=== PATIENT | female | born 1975 | race Caucasian/White ===

== ENCOUNTER 2017-05-10 09:10 | Emergency (ER) | payer BC, OTHER ==
[~2017-05-10] VITALS: Ht 185.4 cm; Wt 153.6 kg
[~2017-05-10 09:10] MED LIST: ONDA4TAB6 PO
[2017-05-10] MEDS ORDERED: ipratropium/albuterol 3ml nebule NEB ONE (09:20)
[2017-05-10] MEDS ORDERED: methylPREDNISolone sod succ 125mg/2ml vial IV ONE (09:20)
[2017-05-10] MEDS ORDERED: HYDR-569 PO (10:15)
[2017-05-10 10:55] VITALS: BP 120/75
== END 2017-05-10 10:56 | disposition home or self-care (01) ==
LOC: ER 09:10
DX: M25.562 Pain in left knee (principal); E78.00 Pure hypercholesterolemia, unspecified; E11.9 Type 2 diabetes mellitus without complications; F17.200 Nicotine dependence, unspecified, uncomplicated; Z86.718 Personal history of other venous thrombosis and embolism
CPT/HCPCS: 29505; 73564; 99284

== ENCOUNTER 2017-07-12 16:21 | Emergency (ER) | payer BC, OTHER ==
[~2017-07-12] VITALS: Ht 182.9 cm; Wt 151.0 kg
[~2017-07-12 16:21] MED LIST changes: +HYDR-569 PO
[2017-07-12] MEDS ORDERED: ondansetron/PF 4mg/2ml inj IV ONE (16:40)
[2017-07-12] MEDS ORDERED: morphine 4 MG/ML inj SYRINge IM ONE (16:45)
[2017-07-12 17:00] LABS: BASOPHILS % (AUTO) 0.3 % (0-1); EOSINOPHILS # (AUTO) 0.2 X10'3 (0-0.9); EOSINOPHILS % (AUTO) 1.2 % (0-6); HEMATOCRIT 40.8 % (35.0-45.0); HEMOGLOBIN 13.9 g/dl (12.0-16.0); LYMPHOCYTES # (AUTO) 2.1 X10'3 (1.1-4.8); LYMPHOCYTES % (AUTO) 16.7 % (21-51); MEAN CORPUSCULAR HEMOGLOBIN 28.4 PG (27.0-31.0); MEAN CORPUSCULAR HGB CONC 34.1 % (33.0-36.5); MEAN CORPUSCULAR VOLUME 83.3 FL (78-98); MONOCYTES # (AUTO) 0.7 X10'3 (0-0.9); MONOCYTES % (AUTO) 5.4 % (2-12); NEUTROPHILS # (AUTO) 9.7 X10'3 (1.8-7.7); NEUTROPHILS % (AUTO) 76.4 % (42-75); PLATELET COUNT 318 X10'3 (140-440); RED CELL DISTRIBUTION WIDTH 14.2 % (11.5-14.5); WHITE BLOOD COUNT 12.7 X10'3 (4.5-11.0)
[2017-07-12] MEDS ORDERED: morphine 4 MG/ML inj SYRINge IV ONE ×2 (17:00→17:25)
[2017-07-12 17:19] LABS: ALANINE AMINOTRANSFERASE 33 U/L (12-78); ALBUMIN 3.8 G/DL (3.4-5.0); ALKALINE PHOSPHATASE 66 IU/L (46-116); ANION GAP 11 (8-16); ASPARTATE AMINO TRANSFERASE 17 U/L (10-37); BILIRUBIN,TOTAL 0.3 MG/DL (0.1-1.0); BLOOD UREA NITROGEN 15 MG/DL (7-18); BUN/CREATININE RATIO 17.2 (6.6-38.0); CHLORIDE 106 MMOL/L (99-107); CREATININE 0.87 MG/DL (0.40-0.90); GLUCOSE 138 MG/DL (70-104); LIPASE 139 U/L (73-393); POTASSIUM 3.5 MMOL/L (3.5-5.1); SODIUM 142 MMOL/L (135-145); TOTAL CARBON DIOXIDE 24.6 MMOL/L (24-32); TOTAL PROTEIN 7.6 G/DL (6.4-8.2); TROPONIN I < 0.04 NG/ML (0.0-0.05); eGFR 71 ML/MIN
[2017-07-12 17:34] LABS: URINE HCG NEGATIVE (NEG)
[2017-07-12 17:38] LABS: CLARITY,URINE CLEAR (Clear); COLOR,URINE YELLOW (Yellow); GLUCOSE, URINE NEGATIVE (Neg); KETONES,URINE NEGATIVE (Neg); LEUKOCYTE ESTERASE ,URINE NEGATIVE (Neg); NITRITES, URINE NEGATIVE (Neg); OCCULT BLOOD,URINE NEGATIVE (Neg); PH,URINE 6.5 (4.8-8.0); PROTEIN,URINE NEGATIVE (Neg); UROBILINOGEN,URINE 0.2 E.U/dL (0.2-1.0)
[2017-07-12 17:40] LABS: UA COLLECTION TYPE STRAIGHT CATH
[2017-07-12] MEDS ORDERED: HYDROmorphone inj. 0.5 MG/0.5 ML DISP.SYRIN IV STA (18:13)
[2017-07-12 19:34] LABS: URINE AMPHETAMINE SCREEN NEGATIVE (Neg); URINE BARBITUATE SCREEN NEGATIVE (Neg); URINE BENZODIAZEPINES SCREEN NEGATIVE (Neg); URINE CANNABINOID SCREEN POSITIVE (Neg); URINE COCAINE SCREEN NEGATIVE (Neg); URINE METHADONE SCREEN NEGATIVE (Neg); URINE OPIATE SCREEN POSITIVE (Neg); URINE PHENCYCLIDINE SCREEN NEGATIVE (Neg)
[2017-07-12] MEDS ORDERED: HYDR-569 PO (19:55)
[2017-07-12 20:04] VITALS: BP 147/82
== END 2017-07-12 20:06 | disposition home or self-care (01) ==
LOC: ER 16:22
DX: E28.2 Polycystic ovarian syndrome (principal); R10.84 Generalized abdominal pain; E78.00 Pure hypercholesterolemia, unspecified; E11.9 Type 2 diabetes mellitus without complications; Z86.718 Personal history of other venous thrombosis and embolism
CPT/HCPCS: 36415; 71045; 74176; 76856; 80053; 80305; 81003; 81025; 83605; 83690; 84484; 85025; 93005; 96372; 96374; 96375; 99285; J1170; J2270; J2405

== ENCOUNTER 2022-12-16 09:44 | Emergency (ER) | payer BC, OTHER ==
[~2022-12-16] VITALS: Ht 180.3 cm; Wt 150.0 kg
[~2022-12-16 09:44] MED LIST changes: +HYDR-4383 PO; -HYDR-569 PO
[2022-12-16 09:59] VITALS: BP 170/96; PULSE 107; TEMP 97.8; O2SAT 96
[2022-12-16] MEDS ORDERED: triamcinolone acetonide 40mg/ml inj IM ONE (13:20)
[2022-12-16] MEDS ORDERED: ketorolac trometh inj. 60 MG/2 ML VIAL IM ONE (13:20)
[2022-12-16] MEDS ORDERED: TRAM50TA2 PO (13:23)
[2022-12-16 13:27] VITALS: RESP 18
== END 2022-12-16 13:40 | disposition home or self-care (01) ==
LOC: ER 09:44
DX: M75.32 Calcific tendinitis of left shoulder (principal); E78.00 Pure hypercholesterolemia, unspecified; E11.9 Type 2 diabetes mellitus without complications; G89.29 Other chronic pain; R62.50 Unspecified lack of expected normal physiological development in childhood; Z86.718 Personal history of other venous thrombosis and embolism; Z98.891 History of uterine scar from previous surgery; Z79.899 Other long term (current) drug therapy
CPT/HCPCS: 73030; 96372; 99284; J1885; J3301